=== PATIENT | female | born 1990 | race Caucasian/White ===

== ENCOUNTER 2017-02-04 01:31 | Emergency (ER) | payer OTHER ==
[2017-02-04 01:49] VITALS: BP 132/75; PULSE 89; TEMP 98.3; BMI 18.3
[2017-02-04] MEDS ORDERED: AMOX TR/POT CLAV 875MG/125MG TABLETS (FP) PO ONE (02:01)
[2017-02-04] MEDS ORDERED: DIPHTH,PERTUSS(ACELL),TET 0.5 ML DISP.SYRIN IM ONE (02:01)
--- NOTE | 2017-02-04 02:01 | PDOC ---
History of Present Illness - General Chief Complaint: Bite Stated Complaint: DOG BITE Time Seen by Provider: 02/04/17 01:51 - History of Present Illness Initial Comments: 02/04/17 02:02 Patient is a 26 y.o. female who presents to our ED this evening following a dog bite to her L 3rd digit. 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 Patient provided paperwork indicating she has already contacted the [facility] and that the dog's owners state the dog is not UTD on the rabies vaccine. Patient notes she received the rabies vaccine as pre-exposure prophylaxis during veterinary school in 2011. Past History - Past Medical History Allergies/Adverse Reactions: Allergies Allergy/AdvReac Type Severity Reaction Status Date / Time No Known Allergies Allergy Verified 02/04/17 02:13 Home Medications: Ambulatory Orders NK [No Known Home Medication] 02/04/17 - Suicide/Smoking/Psychosocial Hx Smoking History: Never smoked Have you smoked in the past 12 months: No Information on smoking cessation initiated: No Hx Alcohol Use: No Drug/Substance Use Hx: No Review of Systems - Review of Systems Constitutional: No: Chills, Fever Respiratory: No: Shortness of Breath Cardiac (ROS): No: Chest Pain *Physical Exam - Vital Signs Last Vital Signs Temp Pulse Resp BP Pulse Ox 98.3 F 89 20 132/75 100 02/04/17 01:47 02/04/17 01:47 02/04/17 01:47 02/04/17 01:47 02/04/17 01:47 - Physical Exam General Appearance: Yes: Nourished, Thin Extremity: positive: Normal Capillary Refill, Normal Inspection, Other (B/L puncture bite wounds on distal 1/3 of L hand 3rd digit; neurovasculary intact, full ROM, 5/5 strength) Medical Decision Making - Medical Decision Making 02/04/17 02:06 Patient presents following a dog bite to the third digit of her L hand. On PE patient is neurovasculary intact with no visible damage to the nail bed indicating crush injury with puncture wound like bite gregory. Patient provides paperwork showing she has already contacted [facility]. Patient to be given first dose of Augmentin, TDAP and discharged home with return precautions. *DC/Admit/Observation/Transfer Diagnosis at time of Disposition: Dog bite - Discharge Dispostion Disposition: HOME Condition at time of disposition: Good Admit: No - Referrals Referrals: Stephanie Kiser MD [Primary Care Provider] - - Patient Instructions Printed Discharge Instructions: How to Care for a Domestic Animal Bite, DI for Animal Bites Additional Instructions: A prescription has been called to your pharmacy. Take the finish the entire 7 day course of antibiotics. Please return to the Emergency Department should you be contacted by the Health Department regarding the rabies status of the involved animal. You can also visit your primary care physician for initiation of the Rabies Immunoglobulin and Vaccine. Please return to the Emergency Department for any worsening, new or concerning symptoms. - Post Discharge Activity
--- NOTE | 2017-02-04 02:13 | PDOC ---
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 No: Apparent Distress, Intoxicated HEENT: positive: EOMI, NIMA, Normal ENT Inspection, Normal Voice, TMs Normal, Pharynx Normal. negative: Pale Conjunctivae, Photophobia, Scleral Icterus (R), Scleral Icterus (L) Neck: positive: Trachea midline, Normal Thyroid, Supple. negative: Tender, Rigid, Carotid bruit, Stridor, Lymphadenopathy (R), Lymphadenopathy (L), Thyromegaly Respiratory/Chest: positive: Lungs Clear, Normal Breath Sounds. negative: Chest Tender, Respiratory Distress, Accessory Muscle Use, Labored Respiration, RES, Crackles, Rales, Rhonchi, Stridor, Wheezing, Dullness Cardiovascular: positive: Regular Rhythm, Regular Rate, S1, S2. negative: Edema , JVD, Murmur, Bradycardia, Tachycardia Vascular Pulses: Dorsalis-Pedis (R): 2+, Doralis-Pedis (L): 2+ Gastrointestinal/Abdominal: positive: Normal Bowel Sounds, Flat, Soft. negative : Tender, Organomegaly, Pulsatile Mass, Increased Bowel Sounds, Decreased BS, Distended, Guarding, Rebound, Hernia, Hepatomegaly, Spleenomegaly Lymphatic: negative: Adenopathy, Tenderness Musculoskeletal: positive: Normal Inspection. small abrasions/ wounds to dorsum of right 3/4/5 finger negative: CVA Tenderness, Decreased Range of Motion Extremity: positive: Normal Capillary Refill, Normal Inspection, Normal Range of Motion, Pelvis Stable. negative: Tender, Pedal Edema, Swelling, Erythema Integumentary: positive: Normal Color, Dry, Warm. negative: Cyanotic, Erythema , Jaundice, Rash Neurologic: positive: media liaison officer II-XII NML intact, Fully Oriented, Alert, Normal Mood/ Affect, Motor Strength 5/5. negative: EOM Palsy, Facial Droop, Sensory Deficit - Medical Decision Making 02/04/17 02:23 Pt treated and released.
[2017-02-04] MEDS ORDERED: AMOX TR/POT CLAV 875MG/125MG TABLETS (FP) ONE (02:14)
== END 2017-02-04 02:21 | disposition home or self-care (01) ==
LOC: JER 01:31
PROC: 3E0234Z Introduction of Serum, Toxoid and Vaccine into Muscle, Percutaneous Approach (ICD-10-PCS; principal; 2017-02-04)
DX: S61.253A Open bite of left middle finger without damage to nail, initial encounter (principal); W54.0XXA Bitten by dog, initial encounter; Y93.89 Activity, other specified; Y92.89 Other specified places as the place of occurrence of the external cause; Y99.0 Civilian activity done for income or pay
CPT/HCPCS: 90715; 99281-25